=== PATIENT | female | born 1995 | race Caucasian/White ===

== ENCOUNTER 2023-06-19 14:00 | Emergency (ER) | payer OTHER, SELFPAY ==
--- NOTE | ~2023-06-19 | CT_ITS ---
EXAMINATION: CT facial bones w con DATE: 06/19/2023 15:59 INDICATION: lip abscess . TECHNIQUE: Computed tomography (CT) of the facial bones and maxillofacial region was performed with 7 5 mL Omnipaque 350 intravenous contrast. Automated exposure control and iterative reconstruction tech nique were employed. The dose-length product was 244.69 mGy-cm. COMPARISON: None. FINDINGS: Soft Tissues: Multiseptated 2.6 x 7.1 x 2.7 cm soft tissue fluid collection extending from the anter ior lower lip, over the left lower face, and terminating posteriorly at the level of the left posteri or molars. Enlarged subtle lingular and bilateral anterior cervical chain lymph nodes. Facial bones: No acute fracture. No lytic or blastic lesion. Eyes: The globes are intact. The soft tissue planes of the orbits are maintained. Paranasal Sinuses: Maxillary retention cyst/polyps. The remaining visualized aerated spaces are dino r. Foreign Bodies: No radiopaque foreign bodies. Other Findings: None. IMPRESSION: 2.6 x 7.1 x 2.7 cm soft tissue abscess involving the lower lip and left lower facial soft tissues. No definite odontogenic focus detected. Lymphadenopathy. Reviewed, dictated and finalized at location [facility]. E CARE NURSING ASSISTANT IMPRESSION: 2.6 x 7.1 x 2.7 cm soft tissue abscess involving the lower lip and left lower f acial soft tissues. No definite odontogenic focus detected. Lymphadenopathy.
[2023-06-19 14:01] VITALS: BP 135/96; PULSE 106; RESP 18; TEMP 36.4; O2SAT 100
--- NOTE | 2023-06-19 14:17 | ED.SKABFB ---
HPI - Skin/Abscess/Foreign Bdy General Chief complaint: Skin/Abscess/Foreign Body <Sharmila Flowers PA-C - Last Filed: 06/19/23 18:09> Stated complaint: facial swelling <AGNIESZKA Perry Last Filed: 06/19/23 18:09> Time Seen by Provider: 06/19/23 14:10 <Sharmila Flowers PA-C - Last Filed: 06/19/23 18:09> Focused HPI: This is a 27 year old female that presents to the ER for lower lip swelling and pain. Ongoing over the last 4 days. She was seen at [facility] and started on Augmentin. Has had worsening pain and swelling since. Also reports abnormal drainage. Denies fevers. GENERAL: Well-appearing, well-nourished, and in mild acute distress due to pain HEAD: Normocephalic, atraumatic. ENT: Lower lip is diffusely swollen with purulent drainage and erythema CHEST: Clear to auscultation. ?No respiratory distress. HEART: Regular rate and rhythm.? NEURO: ?Alert and oriented x3. Patient screened in triage and initial orders placed.? ?Additional care and disposition to be based upon?diagnostic testing and treatment. <Sharmila Flowers PA-C - Last Filed: 06/19/23 18:09> Related Data Allergies/Adverse reactions: Allergies Allergy/AdvReac Type Severity Reaction Status Date / Time No Known Allergies Allergy Unverified 06/19/23 17:49 <Sharmila Flowers PA-C - Last Filed: 06/19/23 18:09> Review of Systems Review of Systems: CONSTITUTIONAL: Denies fever ENT: Denies dysphagia RESPIRATORY: Denies dyspnea. <AGNIESZKA Perry Last Filed: 06/19/23 18:09> All systems reviewed & are unremarkable except as noted in HPI and below <AGNIESZKA Perry Last Filed: 06/19/23 18:09> PMFSH Past Medical History Medical History: Medical History (Updated 06/20/23 @ 00:00 by Background Daemon) No active medical problems <Sharmila Flowers PA-C - Last Filed: 06/19/23 18:09> Social History Social History: Social History (Updated 06/19/23 @ 17:28 by Sharmila Flowers PA-C) Substance use: never <Sharmila Flowers PA-C - Last Filed: 06/19/23 18:09> Exam Narrative: GENERAL: Well-appearing, well-nourished, and in mild acute distress due to pain HEAD: Normocephalic, atraumatic. EYES: EOMI. ENT: Mucous membranes moist. Oropharynx without tonsillar hypertrophy exudate or other lesions. No trismus. Lower lip is diffusely swollen with purulent drainage and erythema. Floor of mouth is soft. Patient is drooling NECK: Supple. Left-sided tender anterior cervical adenopathy CHEST: Clear to auscultation. No respiratory distress. No wheezes rales or rhonchi HEART: Regular rate and rhythm. No murmur heard. Normal peripheral pulses. EXTREMITIES: Normal range of motion. No edema. SKIN: Warm, dry, no rash. NEURO: No focal deficits. Alert and oriented x3. PSYCH: Normal mood and affect <Sharmila Flowers PA-C - Last Filed: 06/19/23 18:09> Course Course Emergency Course: Patient updated on her workup and need for transfer for higher level of care <Sharmila Flowers PA-C - Last Filed: 06/19/23 18:09> EXPERIMENTAL PSYCHOLOGIST/PA Physician Supervision EXPERIMENTAL PSYCHOLOGIST/PA discussed patient with myself. Aware of CT findings, unclear etiology, and agree with indication to transfer to a facility with plastic surgery given location. I did evaluate patient at bedside and appreciate the same physicial exam. Patent airway. Patient accepted at [facility]; EMS transfer via ALS given antibiotics being given. Transferred in stable condition. <Zoraida Hameed MD - Last Filed: 06/20/23 02:31> Consultations Consultation #1: Spoke with Dr. Aburto, plastic surgery at [facility], about patient and workup. Recommends transfer to the ER for further evaluation <Sharmila Flowers PA-C - Last Filed: 06/19/23 18:09> Date: 06/19/23 <Sharmila Flowers PA-C - Last Filed: 06/19/23 18:09> Consultation #2: Spoke with Dr. Jamil about patient and workup, ER physician, who accepts patient as a transfer <Sharmila Flowers PA-C - Last Filed: 06/19/23
[2023-06-19 14:22] LABS: Basophils Absolute Auto 0.1 K/mm3 (0.0-0.1); Basophils Percent Auto 0.5 % (0.2-1.2); Eosinophils Absolute Auto 0.3 K/mm3 (0-0.3); Eosinophils Percent Auto 2.6 % (0-4.4); Hematocrit 47.3 % (37.0-47.0); Hemoglobin 14.9 g/dL (12.0-15.0); Immature Granulocyte Absolute 0.05 K/mm3 (0.00-0.031); Immature Granulocyte Percent A 0.4 % (0-0.5); Lymphocytes Absolute Auto 2.06 K/mm3 (0.9-3.2); Lymphocytes Percent Auto 16.5 % (18.3-44.2); Mean Corpuscular HGB Conc 31.5 g/dl (32-36); Mean Corpuscular Volume 95.2 fl (80-100); Monocytes Absolute Auto 0.7 K/mm3 (0.1-0.6); Monocytes Percent Auto 5.4 % (2.6-8.5); Neutrophils Absolute Auto 9.4 K/mm3 (1.3-6.7); Neutrophils Percent Auto 74.6 % (45.5-73.1); Platelet Count Result 410 k/mm3 (150-375); Red Blood Count 4.97 M/mm3 (4.2-5.4); Red Cell Distribution Width 12.5 % (11.5-14.5); White Blood Count 12.5 K/mm3 (4.5-10.0)
[2023-06-19 14:38] LABS: Alanine Aminotransferase 28 U/L (6-35); Albumin Level 4.4 g/dL (3.5-5.1); Alkaline Phosphatase 117 U/L (38-126); Anion Gap 12 mmol/L (8-16); Aspartate Amino Transferase 21 U/L (14-36); Bilirubin,Total 0.6 mg/dL (0.2-1.3); Blood Urea Nitrogen 12 mg/dL (7-17); CRP 5.4 mg/dL (<1.0); Carbon Dioxide 27 mmol/L (22-30); Chloride 99 mmol/L (98-107); Estimated CRCL calculation 87 ml/min; Estimated Glomerular Filt Rate > 60; Glucose 173 mg/dL (65-110); Potassium 4.2 mmol/L (3.4-5.0); Sodium 138 mmol/L (137-145)
[2023-06-19 14:48] LABS: Erythrocyte Sedimentation Rate 12 mm/hr (0-20)
[2023-06-19 15:21] VITALS: O2SAT 91
--- NOTE | 2023-06-19 15:21 | PC.NURSE ---
pt on oral abts of [id number] and naproxen 500mgs from 06/15.
[2023-06-19 15:31] VITALS: BP 112/80; PULSE 88; RESP 20; O2SAT 100
[2023-06-19] MEDS: ONDANSETRON INJ 4 MG/2 ML VIAL IV PUSH (15:45)
[2023-06-19] MEDS: MORPHINE SULFATE (*CRX) 4 MG/ML INJ IV PUSH (15:47)
[2023-06-19 15:48] VITALS: O2SAT 100
[2023-06-19 16:06] VITALS: O2SAT 99
[2023-06-19 16:18] VITALS: O2SAT 98
[2023-06-19 17:07] LABS: Hemoglobin A1C 5.2 % (<5.7)
[2023-06-19] MEDS: VANCOMYCIN 1,000 MG/NS 250 ML 1,000 MG/250 ML BAG 250 MG IVPB (17:12)
[2023-06-19] MEDS: SODIUM CHLORIDE 0.9% IV 1,000 ML 999 ML IV CONT (17:12)
[2023-06-19] MEDS: KETOROLAC 15 MG/ML VIAL (*BKC) IV PUSH (17:48)
== END 2023-06-19 17:57 | disposition short-term general hospital (02) ==
PROVIDERS: Emergency Provider Physician Assistant; PCP Family Medicine
DX: K13.0 Diseases of lips (principal)
CPT/HCPCS: 36415; 70487; 80053; 81025; 83036; 85025; 85652; 86140; 87040; 87070; 87181; 87186; 87205; 96365; 96375; 99285; J1885; J2270; J2405; J3370; J7030; Q9967